=== PATIENT | female | born 1985 | race African-American/Black ===

== ENCOUNTER 2017-08-08 16:22 | Emergency (ER) | payer MEDICAID ==
[~2017-08-08] VITALS: Ht 170.2 cm; Wt 77.1 kg
[2017-08-08] MEDS ORDERED: Norco 5mg/325mg tab ORAL ONE (16:45)
[2017-08-08 16:50] VITALS: BP 136/80
--- NOTE | 2017-08-08 17:58 | Emergency Room Report ---
History of Present Illness General Chief Complaint: Upper Extremity Injury Source: Patient Present Illness HPI 32-year-old female presents to the emergency department complaining of 10 out of 10 in severity left hand pain, swelling and tenderness x2 weeks. Patient states she was evaluated 2 weeks ago and was informed that she fractured her ring finger. Patient states that she has been unable to followup with orthopedics and she currently is not immobilized. She also is requesting refill of pain medication in addition to psychiatric medications Seroquel and Abilify. She denies any trauma or fall.Denies numbness tingling or loss of sensation or gross motor movements of the extremities, incontinence of bowel or bladder. Denies CP, Palpitations, LOC, AMS, dizziness, Changes in Vision, Sensation, paresthesias, or a sudden severe headache. Allergies: Coded Allergies: No Known Allergies (Unverified , 08/08/17) Patient History Past Medical History: see triage record Past Surgical History: none Pertinent Family History: none Last Menstrual Period: 07/28/17 Now: No Immunizations: UTD Reviewed Nursing Documentation: PMH: Agreed Nursing Documentation-PMH Past Medical History: No Stated History Review of Systems All Other Systems: negative except mentioned in HPI Physical Exam Vital Signs Date Time Temp Pulse Resp B/P (MAP) Pulse Ox O2 Delivery O2 Flow Rate FiO2 08/08/17 16:29 98.6 93 18 136/80 98 Room Air Sp02 EP Interpretation: reviewed, normal General Appearance: no apparent distress, alert, GCS 15, non-toxic Head: normocephalic, atraumatic ENT: hearing grossly normal, normal voice Neck: full range of motion Respiratory: lungs clear, normal breath sounds, speaking full sentences Cardiovascular #1: regular rate, rhythm, normal capillary refill Musculoskeletal: back normal, gait/station normal, normal range of motion, swelling - to the 4th knuckle and proximal 4th digit, swelling noted, other - hand not immobilized. , tender - TTP to the 4th knuckle and proximal 4th digit, swelling noted. limited ROM due to pain. NVI. Neurologic: alert, oriented x3, responsive, motor strength/tone normal, sensory intact, speech normal, grossly normal Psychiatric: judgement/insight normal, other - flattened affect. Skin: normal color, no rash, warm/dry, well hydrated, other - Swelling to the 4th knuckle and proximal 4th digit. Lymphatic: no adenopathy Medical Decision Making PA Attestation Dr. Gurrola is my supervising Physician whom patient management has been discussed with. Diagnostic Impression: Primary Impression: Finger fracture, left Qualified Codes: S62.615A - Displaced fracture of proximal phalanx of left ring finger, initial encounter for closed fracture Additional Impression: Medication refill ER Course 32-year-old female presents to the emergency department complaining of 10 out of 10 in severity left hand pain, swelling and tenderness x2 weeks. Patient states she was evaluated 2 weeks ago and was informed that she fractured her ring finger. Patient states that she has been unable to followup with orthopedics and she currently is not immobilized. She also is requesting refill of pain medication in addition to psychiatric medications Seroquel and Abilify. She denies any trauma or fall.Denies numbness tingling or loss of sensation or gross motor movements of the extremities, incontinence of bowel or bladder. Denies CP, Palpitations, LOC, AMS, dizziness, Changes in Vision, Sensation, paresthesias, or a sudden severe headache. Ddx considered but are not limited to Fracture, dislocation, contusion, Sprain/ Strain/Spasm, Epidural abscess, Neoplastic mets. Vital signs: are WNL, pt. is afebrile H&PE are most consistent with musculoskeletal injury will perform imaging to r/ o fractures/dislocations. ORDERS: - X-ray Left hand - POSITIVE for Left 4th phalanx shaft fracture, no Dislocation, or significant soft tissue injury, per preliminary read in ED, and signed by JAIRO Heart, my supervising physician has reviewed, and agrees with my interpretation. ED INTERVENTIONS: - Left hand ulnar gutter Splint applied by crm technical lead. Pt. remains neurovascularly intact. DISCHARGE: At this time pt. is stable for d/c to home. Will provide printed patient care instructions, and any necessary prescriptions. Care plan and follow up instructions have been discussed with the patient prior to discharge. Other X-Ray Diagnostic Results Other X-Ray Diagnostic Results : X-Ray ordered: Hand- Left # of Views/Limited Vs Complete: 3 View Indication: Swelling EP Interpretation: Yes JAIRO Xray: Interpretation reviewed, by supervising MD, and agrees with findings. Interpretation: no dislocation, other - Left 4th phalanx shaft fracture Impression: Other - abnormal Electronically Signed by: Christine Heart PA-C Last Vital Signs Date Time Temp Pulse Resp B/P (MAP) Pulse Ox O2 Delivery O2 Flow Rate FiO2 08/08/17 16:57 98.6 08/08/17 16:50 72 18 136/80 98 Room Air Disposition: HOME, SELF-CARE Condition: Stable Scripts Aripiprazole* (ABILIFY*) 15 Mg Tablet 15 MG ORAL DAILY, #14 TAB 0 Refills Prov: Christine Heart 08/08/17 Quetiapine Fumarate* (SEROQUEL*) 25 Mg Tablet 25 MG ORAL QHS, #14 TAB Prov: Christine Heart 08/08/17 Ibuprofen* (MOTRIN*) 600 Mg Tablet 600 MG ORAL THREE TIMES A DAY, #30 TAB 0 Refills Prov: Christine Heart 08/08/17 Referrals: AIRAM CAVAZOS Patient Instructions: Finger Fracture, [id number] Additional Instructions: Take medications as directed. Follow up with an [facility] in 3-5 days, even if your symptoms have resolved. --Please review list of primary care clinics, if you do not already have a primary care provider who can give you an Orthopedic Referral. Return sooner to ED if new symptoms occur, or current symptoms become worse. - Please note that this Emergency Department Report was dictated using [employer] reporter technology software, occasionally this can lead to erroneous entry secondary to interpretation by the dictation equipment. Christine Heart Aug 08, 2017 17:58
[2017-08-08] MEDS ORDERED: IBUPROFEN600 MG ORAL (17:59)
[2017-08-08 18:27] VITALS: BP 136/80
[2017-08-08] MEDS ORDERED: ABILIFY15 MG ORAL (18:27)
[2017-08-08] MEDS ORDERED: QUETIAPINE FUMA25 MG ORAL (18:27)
--- NOTE | 2017-08-09 09:54 | Diagnostic Imaging Report ---
Indication: Pain Technique: XRAY Hand Complete L Comparison: None Findings: There is an acute, mildly displaced fracture through the proximal shaft of the fourth proximal phalanx. The fracture line does not appear to extend to the articular surface. No additional fracture identified. No radiopaque foreign body seen. Impression: Acute, mildly displaced fracture of the fourth proximal phalanx. This corresponds with the preliminary interpretation by the treating ER clinician as documented in the electronic medical record.
== END 2017-08-08 18:27 | disposition home or self-care (01) ==
LOC: EMR 18:27
DX: S62.615A Displaced fracture of proximal phalanx of left ring finger, initial encounter for closed fracture (principal); X58.XXXA Exposure to other specified factors, initial encounter; Y92.9 Unspecified place or not applicable; Z76.0 Encounter for issue of repeat prescription
CPT/HCPCS: 99284